=== PATIENT | female | born 1985 | race Caucasian/White ===

== ENCOUNTER 2017-07-27 17:26 | Inpatient (IN) | payer BC ==
[2017-07-27] MEDS ORDERED: Sodium Chloride 0.9% 10 ML Syringe FLUSH PRN (18:12)
--- NOTE | 2017-07-27 18:27 | PCM.LDHP ---
L&D History of Present Illness - General Date of Service: 07/27/17 Admit Problem/Dx: Patient Status Order with Admit Dx/Problem 07/27/17 18:12 Patient Status [ADT] Routine Admission Diagnosis/Problem Admission Diagnosis/Problem Source of Information: Patient History Limitations: Reports: No Limitations - History of Present Illness Introduction:: 32-year-old G one P0000 BRIGITTE 08/07/17 estimated gestational age 38 weeks 3 days presented to labor and delivery complaining of contractions. Cervix was 5 cm dilated. Spontaneous rupture membranes occurred at approximately 1820 hrs. Clear fluid. Group B strep is reported as negative. Blood type is AB+, antibody screen negative, hemoglobin 12.4 on 02/01/17. Platelets 194,000 rubella immune on 04/18/17 hemoglobin 12.3 platelets 194,001 hour OB glucose screen normal at 1: 15 antibody screen negative hepatitis B surface antigen nonreactive on 02/01/17 HIV negative as well. Chlamydia and GC probe not dissected. Patient admitted for delivery. Improves with: Reports: None Worsens with: Reports: None Associated Symptoms: Reports: N - Related Data Allergies/Adverse Reactions: Allergies Allergy/AdvReac Type Severity Reaction Status Date / Time No Known Allergies Allergy Verified 07/27/17 17:40 H&P Review of Systems - Review of Systems: Review Of Systems: See Below General: Reports: No Symptoms HEENT: Reports: No Symptoms Pulmonary: Reports: No Symptoms Cardiovascular: Reports: No Symptoms Gastrointestinal: Reports: No Symptoms Genitourinary: Reports: No Symptoms Musculoskeletal: Reports: No Symptoms Skin: Reports: No Symptoms Psychiatric: Reports: No Symptoms Neurological: Reports: No Symptoms Hematologic/Lymphatic: Reports: No Symptoms Immunologic: Reports: No Symptoms L&D Exam - Exam Exam: See Below - Vital Signs Vital Signs: Last Vital Signs Temp 98.0 F 07/27/17 17:39 Pulse 70 07/27/17 17:39 Resp 16 07/27/17 17:39 BP 127/69 07/27/17 17:39 Pulse Ox Weight: 135 lb - OB Specific Fundal Height In cm: 38 Contraction Duration (sec): 60 Contraction Frequency (min): 3 Contraction Intensity: Moderate to Strong Movement: Active Heart Tones: Present Heart Tones per Min: 135 Heart Rate (FHR) Variability: Moderate (6-25 bmp) Presentation: Vertex - Jensen Score Jensen Score Cervix Position: Posterior Jensen Score Consistency: Soft Jensen Score Effacement: >80% Jensen Score Dilation: > 5 cm Jensen Score Infant's Station: -1 ,0 Jensen Score Total: 10 - Exam General: Alert, Oriented HEENT: Conjunctiva Clear, Mucosa Moist & [place], PERRLA Neck: Supple, Trachea Midline Lungs: Clear to Auscultation, Normal Respiratory Effort Cardiovascular: Regular Rate, Regular Rhythm GI/Abdominal Exam: Normal Bowel Sounds, Soft Genitourinary: Normal external exam Extremities: Normal Inspection, Normal Range of Motion, Non-Tender, No Pedal Edema, Normal Capillary Refill Skin: Warm, Dry, Intact Neurological: Reflexes Equal Bilateral Psychiatric: Alert, Normal Affect, Normal Mood - Problem List (1) 38 weeks gestation of SNOMED Code(s): 90946146 ICD Code: Z3A.38 - 38 WEEKS GESTATION OF Status: Acute Current Visit: Yes Problem List Initiated/Reviewed/Updated: No Orders Last 24hrs: Active Orders 24 hr Category Date Time Status Patient Status [ADT] Routine ADT 07/27/17 18:12 Active Activity as Tolerated [RC] PFP Care 07/27/17 18:12 Active Communication Order [RC] ASDIRECTED Care 07/27/17 18:12 Active Heart Tones [RC] ASDIRECTED Care 07/27/17 18:13 Active Notify Provider [RC] PFP Care 07/27/17 18:12 Active Notify Provider [RC] PRN Care 07/27/17 18:12 Active Peripheral IV Care [RC] . DIRECTED Care 07/27/17 18:13 Active Vital Signs [RC] PER UNIT ROUTINE Care 07/27/17 18:12 Active CBC WITH AUTO DIFF [HEME] Stat Lab 07/27/17 18:12 Ordered RAPID PLASMA REAGIN,RPR [CHEM] Routine Lab 07/27/17 18:15 Ordered TYPE AND SCREEN [BBK] Stat Lab 07/27/17 18:12 Ordered Lactated Ringers [Ringers, Lactated] 1,000 ml Med 07/27/17 18:15 Active IV ASDIRECTED Oxytocin [Pitocin] 20 unit Med 07/27/17 18:15 Active Lactated Ringers [Ringers, Lactated] 1,000 ml IV TITRATE Sodium Chloride 0.9% [Saline Flush] Med 07/27/17 18:12 Active 10 ml FLUSH ASDIRECTED PRN Electronic Heart Tones Ext w TOCO [WOMSER] Oth 07/27/17 18:12 Ordered Routine Electronic Heart Tones Internal [WOMSER] Per Unit Oth 07/27/17 18:12 Ordered Routine Peripheral IV Insertion Adult [OM.PC] Routine Ot 07/27/17 18:12 Ordered Resuscitation Status Routine Resus Stat 07/27/17 18:12 Ordered Medication Orders Lactated Ringer's (Ringers, Lactated) 1,000 mls @ 100 mls/hr IV ASDIRECTED [place] Oxytocin 20 unit/ Lactated (Ringer's) 1,002 mls @ 500 mls/hr IV TITRATE [place]; Protocol Sodium Chloride (Saline Flush) 10 ml FLUSH ASDIRECTED PRN PRN Reason: Keep Vein Open Assessment/Plan Comment:: Plan delivery.
[2017-07-28] MEDS ORDERED: Ondansetron 4 MG/2 ML SDV IVPUSH PRN (02:14)
[2017-07-28] MEDS: Lactated Ringers 1,000 ML IV SCH ×2 (02:28→09:39)
[2017-07-28] MEDS: Oxytocin/Lactated Ringers 10 UNIT/1,000 ML BAG IV SCH ×2 (02:28→13:19)
[2017-07-28] MEDS ORDERED: ePHEDrine 50 MG/ML SDV IVPUSH PRN (08:59)
[2017-07-28] MEDS ORDERED: diphenhydrAMINE 50 MG/ML SDV IVPUSH PRN (08:59)
[2017-07-28] MEDS ORDERED: fentaNYL 100 MCG/2 ML SDV EPIDUR PRN (08:59)
[2017-07-28] MEDS ORDERED: Bupivacaine/fentaNYL/NS 100 ML Bag EPIDUR SCH (09:00)
--- NOTE | 2017-07-28 09:21 | PCM.SN ---
- Free Text/Narrative Note: Amniotomy of forebag clear fluid at 0914. Cat I FHR.
[2017-07-28] MEDS: Nalbuphine 20 MG/ML 1 ML Syringe IVPUSH PRN ×2 (09:25→11:36)
[2017-07-28] MEDS ORDERED: Lidocaine 1% 50 ML MDV ONE (12:38)
--- NOTE | 2017-07-28 12:57 | PCM.DEL ---
L & D Note - General Info Date of Service: 07/28/17 Mother's Due Date: 08/07/17 - Delivery Note Labor: Spontaneous, Augmented by ARM, Augmented by Oxytocin Delivery Outcome: Livebirth (Female [id number]/28/2017 2890 gms/ 6#5.9 oz, KRISTY APGARS 7/9. No episiotomy. 2nd degree laceration sutured with 3-0 monocryl x1.) Infant Delivery Method: Spontaneous Vaginal Delivery-Single Infant Delivery Mode: Spontaneous Type of Forceps Used: NA Presentation: Left Occiput Anterior (KRISTY) Nuchal Cord: None Prep: Povidone-Iodine (Betadine Anesthesia Type: Local Anesthetic: Lidocaine (Xylocaine) 1% Plain Local Anesthetic Volume: 5cc Amniotic Fluid Description: Clear Episiotomy Type: None Laceration: 2nd Degree (ML) Suture type: Other (Monocryl x1) Suture size: 3-0 Placenta: Intact, Spontaneous (123807/28/2017 Ignacio intact examined and discarded) Cord: 3 Vessels Estimated Blood Loss: 250 Provider: Carmelo Haji Score 1 min: 7 Score 5 min: 9 - General Info Date of Service: 07/28/17 Functional Status: Reports: Pain Controlled - Review of Systems General: Reports: No Symptoms HEENT: Reports: No Symptoms Pulmonary: Reports: No Symptoms Cardiovascular: Reports: No Symptoms Gastrointestinal: Reports: No Symptoms Genitourinary: Reports: No Symptoms Musculoskeletal: Reports: No Symptoms Skin: Reports: No Symptoms Neurological: Reports: No Symptoms Psychiatric: Reports: No Symptoms - Patient Data Vitals - Most Recent: Last Vital Signs Temp 98.0 F 07/27/17 17:39 Pulse 70 07/27/17 17:39 Resp 16 07/27/17 17:39 BP 127/69 07/27/17 17:39 Pulse Ox Weight - Most Recent: 135 lb I&O - Last 24 Hours: Intake & Output 07/27/17 07/28/17 07/28/17 22:59 06:59 14:59 Intake Total 1000 Balance 1000 Lab Results Last 24 Hours: Laboratory Results - last 24 hr 07/27/17 07/27/17 Range/Units 18:20 18:20 WBC 11.10 H (3.98-10.04) K/mm3 RBC 4.05 (3.98-5.22) M/mm3 Hgb 12.3 (11.2-15.7) gm/L Hct 36.2 (34.1-44.9) % MCV 89.4 (79.4-94.8) fl MCH 30.4 (25.6-32.2) pg MCHC 34.0 (32.2-35.5) g/dl RDW Std Deviation 41.1 (36.4-46.3) fL Plt Count 186 (182-369) K/mm3 MPV 10.9 (9.4-12.3) fl Neut % (Auto) 69.3 (34.0-71.1) % Lymph % (Auto) 21.1 (19.3-51.7) % [place] % (Auto) 7.7 (4.7-12.5) % Eos % (Auto) 1.5 (0.7-5.8) Baso % (Auto) 0.2 (0.1-1.2) % Neut # (Auto) 7.69 H (1.56-6.13) K/mm3 Lymph # (Auto) 2.34 (1.18-3.74) K/mm3 [place] # (Auto) 0.86 H (0.24-0.36) K/mm3 Eos # (Auto) 0.17 (0.04-0.36) K/mm3 Baso # (Auto) 0.02 (0.01-0.08) K/mm3 Blood Type AB POSITIVE Gel Antibody Screen Negative Med Orders - Current: Current Medications Diphenhydramine HCl (Benadryl) 25 mg IVPUSH Q6H PRN PRN Reason: Itching Ephedrine Sulfate (Ephedrine Sulfate) 5 mg IVPUSH ASDIRECTED PRN PRN Reason: HYPOTENTSION Fentanyl (Sublimaze) 100 mcg EPIDUR Q3H PRN PRN Reason: Pain Fentanyl/Bupivacaine HCl (Fentanyl/Bupivacaine/Ns 2 Mcg-0.125% 100 Ml) 100 ml EPIDUR ASDIRECTED [place] Lactated Ringer's (Ringers, Lactated) 1,000 mls @ 100 mls/hr IV ASDIRECTED [place] Last Admin: 07/28/17 09:39 Dose: 100 mls/hr Oxytocin 20 unit/ Lactated (Ringer's) 1,002 mls @ 500 mls/hr IV TITRATE [place]; Protocol Oxytocin/Lactated Ringer's (Pitocin In Lr 10 Units/1,000 Ml) 10 unit in 1,000 mls @ 12 mls/hr IV TITRATE [place]; Protocol Last Infusion: 07/28/17 06:27 Dose: 10 munits/min, 60 mls/hr Nalbuphine HCl (Nubain) 10 mg IVPUSH Q2H PRN PRN Reason: Pain Last Admin: 07/28/17 11:36 Dose: 10 mg Ondansetron HCl (Zofran) 4 mg IVPUSH Q4H PRN PRN Reason: Nausea Sodium Chloride (Saline Flush) 10 ml FLUSH ASDIRECTED PRN PRN Reason: Keep Vein Open Discontinued Medications Oxytocin 10 unit/ Lactated (Ringer's) 1,001 mls @ 12.01 mls/hr IV TITRATE [place]; Protocol Lidocaine HCl (Xylocaine 1%) Confirm Administered Dose 50 ml .ROUTE .[facility] ONE Stop: 07/28/17 12:39 - Exam General: Alert, Oriented HEENT: Pupils Equal, Pupils Reactive, Mucous Membr. Moist/[place] Neck: Supple (Female) Exam: Other (see delivery record (L&D)) Extremities: Normal Inspection, Normal Range of Motion, Non-Tender, No Pedal Edema, Normal Capillary Refill Skin: Warm, Dry, Intact Wound/Incisions: Healing Well Neurological: No New Focal Deficit Psy/Mental Status: Alert, Normal Affect, Normal Mood - Problem List & Annotations (1) 38 weeks gestation of SNOMED Code(s): 55003025 Code(s): Z3A.38 - 38 WEEKS GESTATION OF Status: Acute Current Visit: Yes (2) Second degree laceration of perineum, delivered, current hospitalization SNOMED Code(s): 381608267 Code(s): O70.1 - SECOND DEGREE PERINEAL LACERATION DURING DELIVERY Status: Acute Current Visit: Yes - Problem List Review Problem List Initiated/Reviewed/Updated: No - My Orders Last 24 Hours: My Active Orders 07/27/17 18:12 Patient Status [ADT] Routine Activity as Tolerated [RC] PFP Communication Order [RC] ASDIRECTED Notify Provider [RC] PFP Notify Provider [RC] PRN Vital Signs [RC] PER UNIT ROUTINE Sodium Chloride 0.9% [Saline Flush] 10 ml FLUSH ASDIRECTED PRN Electronic Heart Tones Ext w TOCO [WOMSER] Routine Electronic Heart Tones Internal [WOMSER] Per Unit Routine Peripheral IV Insertion Adult [OM.PC] Routine Resuscitation Status Routine 07/27/17 18:13 Peripheral IV Care [RC] . DIRECTED 07/27/17 18:15 Lactated Ringers [Ringers, Lactated] 1,000 ml IV ASDIRECTED Oxytocin [Pitocin] 20 unit Lactated Ringers [Ringers, Lactated] 1,000 ml IV TITRATE 07/27/17 18:20 RAPID PLASMA REAGIN,RPR [CHEM] Routine 07/27/17 18:46 Non Stress Test [ Non Stress Test] [RC] PER UNIT ROUTINE 07/28/17 02:13 Nalbuphine [Nubain] 10 mg IVPUSH Q2H PRN 07/28/17 02:14 Ondansetron [Zofran] 4 mg IVPUSH Q4H PRN 07/28/17 02:30 Oxytocin/Lactated Ringers [Pitocin in LR 10 Units/1,000 ML] 10 unit in 1,000 ml IV TITRATE - Plan Plan:: Plan delivery.
[2017-07-28] MEDS ORDERED: Lidocaine 1% 50 ML MDV INJECT ONE (13:23)
[2017-07-28] MEDS ORDERED: Acetaminophen 325 MG Tab PO PRN (13:23)
[2017-07-28] MEDS ORDERED: Lanolin 100% Cream 7 GM Tube TOP PRN (13:23)
[2017-07-28] MEDS ORDERED: Docusate Sodium 100 MG Cap PO PRN (13:23)
[2017-07-28] MEDS ORDERED: Ibuprofen 600 MG Tab PO PRN (13:23)
[2017-07-28] MEDS ORDERED: Witch Hazel Medicated Pads 100/Jar TOP PRN (13:23)
[2017-07-28] MEDS ORDERED: Benzocaine/Menthol 20%-0.5% Spray 56 GM Canister TOP PRN (15:23)
--- NOTE | 2017-07-29 08:13 | PCM.SN ---
- Free Text/Narrative Note: PPD#1 Afebrile, chest clear no abnormal breath sounds, cardiac exam normal. Abdomen soft, uterus at U-1, no heavy vaginal bleeding, no leg cramps.
--- NOTE | 2017-07-30 07:23 | PCM.DCSUM1 ---
Discharge Summary - Hospital Course Free Text/Narrative:: [facility] LIVE L/D Delivery Note Patient Name: LOW PLASCENCIA Date of : 85 Patient Status: Inpatient Attending Provider: Carmelo Haji Date: 07/28/17 12:52 Initialization Date: 07/28/17 12:52 L & D Note - General Info Date of Service: 07/28/17 Mother's Due Date: 08/07/17 - Delivery Note Labor: Spontaneous, Augmented by ARM, Augmented by Oxytocin Delivery Outcome: Livebirth (Female 123507/28/2017 2890 gms/ 6#5.9 oz, KRISTY APGARS 7/9. No episiotomy. 2nd degree laceration sutured with 3-0 monocryl x1.) Infant Delivery Method: Spontaneous Vaginal Delivery-Single Delivery Mode: Spontaneous Type of Forceps Used: NA Presentation: Left Occiput Anterior (KRISTY) Nuchal Cord: None Prep: Povidone-Iodine (Betadine Anesthesia Type: Local Anesthetic: Lidocaine (Xylocaine) 1% Plain Local Anesthetic Volume: 5cc Amniotic Fluid Description: Clear Episiotomy Type: None Laceration: 2nd Degree (ML) Suture type: Other (Monocryl x1) Suture size: 3-0 Placenta: Intact, Spontaneous (123807/28/2017 Pierre intact examined and discarded) Cord: 3 Vessels Estimated Blood Loss: 250 Provider: Carmelo Haji Score 1 min: 7 Score 5 min: 9 - General Info Date of Service: 07/28/17 Functional Status: Reports: Pain Controlled - Review of Systems General: Reports: No Symptoms HEENT: Reports: No Symptoms Pulmonary: Reports: No Symptoms Cardiovascular: Reports: No Symptoms Gastrointestinal: Reports: No Symptoms Genitourinary: Reports: No Symptoms Musculoskeletal: Reports: No Symptoms Skin: Reports: No Symptoms Neurological: Reports: No Symptoms Psychiatric: Reports: No Symptoms - Patient Data Vitals - Most Recent: Last Vital Signs Temp 98.0 F 07/27/17 17:39 Pulse 70 07/27/17 17:39 Resp 16 07/27/17 17:39 BP 127/69 07/27/17 17:39 Pulse Ox Weight - Most Recent: 135 lb I&O - Last 24 Hours: Intake & Output 07/27/17 07/28/17 07/28/17 22:59 06:59 14:59 Intake Total 1000 Balance 1000 Lab Results Last 24 Hours: Laboratory Results - last 24 hr 07/27/17 07/27/17 Range/Units 18:20 18:20 WBC 11.10 H (3.98-10.04) K/mm3 RBC 4.05 (3.98-5.22) M/mm3 Hgb 12.3 (11.2-15.7) gm/L Hct 36.2 (34.1-44.9) % MCV 89.4 (79.4-94.8) fl MCH 30.4 (25.6-32.2) pg MCHC 34.0 (32.2-35.5) g/dl RDW Std Deviation 41.1 (36.4-46.3) fL Plt Count 186 (182-369) K/mm3 MPV 10.9 (9.4-12.3) fl Neut % (Auto) 69.3 (34.0-71.1) % Lymph % (Auto) 21.1 (19.3-51.7) % Sharp % (Auto) 7.7 (4.7-12.5) % Eos % (Auto) 1.5 (0.7-5.8) Baso % (Auto) 0.2 (0.1-1.2) % Neut # (Auto) 7.69 H (1.56-6.13) K/mm3 Lymph # (Auto) 2.34 (1.18-3.74) K/mm3 Sharp # (Auto) 0.86 H (0.24-0.36) K/mm3 Eos # (Auto) 0.17 (0.04-0.36) K/mm3 Baso # (Auto) 0.02 (0.01-0.08) K/mm3 Blood Type AB POSITIVE Gel Antibody Screen Negative Med Orders - Current: Current Medications Diphenhydramine HCl (Benadryl) 25 mg IVPUSH Q6H PRN PRN Reason: Itching Ephedrine Sulfate (Ephedrine Sulfate) 5 mg IVPUSH ASDIRECTED PRN PRN Reason: HYPOTENTSION Fentanyl (Sublimaze) 100 mcg EPIDUR Q3H PRN PRN Reason: Pain Fentanyl/Bupivacaine HCl (Fentanyl/Bupivacaine/Ns 2 Mcg-0.125% 100 Ml) 100 ml EPIDUR ASDIRECTED [place] Lactated Ringer's (Ringers, Lactated) 1,000 mls @ 100 mls/hr IV ASDIRECTED [place] Last Admin: 07/28/17 09:39 Dose: 100 mls/hr Oxytocin 20 unit/ Lactated (Ringer's) 1,002 mls @ 500 mls/hr IV TITRATE [place]; Protocol Oxytocin/Lactated Ringer's (Pitocin In Lr 10 Units/1,000 Ml) 10 unit in 1,000 mls @ 12 mls/hr IV TITRATE [place]; Protocol Last Infusion: 07/28/17 06:27 Dose: 10 munits/min, 60 mls/hr Nalbuphine HCl (Nubain) 10 mg IVPUSH Q2H PRN PRN Reason: Pain Last Admin: 07/28/17 11:36 Dose: 10 mg Ondansetron HCl (Zofran) 4 mg IVPUSH Q4H PRN PRN Reason: Nausea Sodium Chloride (Saline Flush) 10 ml FLUSH ASDIRECTED PRN PRN Reason: Keep Vein Open Discontinued Medications Oxytocin 10 unit/ Lactated (Ringer's) 1,001 mls @ 12.01 mls/hr IV TITRATE [place]; Protocol Lidocaine HCl (Xylocaine 1%) Confirm Administered Dose 50 ml .ROUTE .[employer]MED ONE Stop: 07/28/17 12:39 - Exam General: Alert, Oriented HEENT: Pupils Equal, Pupils Reactive, Mucous Membr. Moist/Yonah Neck: Supple (Female) Exam: Other (see delivery record (L&D)) Extremities: Normal Inspection, Normal Range of Motion, Non-Tender, No Pedal Edema, Normal Capillary Refill Skin: Warm, Dry, Intact Wound/Incisions: Healing Well Neurological: No New Focal Deficit Psy/Mental Status: Alert, Normal Affect, Normal Mood - Problem List & Annotations (1) 38 weeks gestation of SNOMED Code(s): 52222268 Code(s): Z3A.38 - 38 WEEKS GESTATION OF Status: Acute Current Visit: Yes (2) Second degree laceration of perineum, delivered, current hospitalization SNOMED Code(s): 769223768 Code(s): O70.1 - SECOND DEGREE PERINEAL LACERATION DURING DELIVERY Status: Acute Current Visit: Yes - Problem List Review Problem List Initiated/Reviewed/Updated: No - My Orders Last 24 Hours: My Active Orders 07/27/17 18:12 Patient Status [ADT] Routine Activity as Tolerated [RC] PFP Communication Order [RC] ASDIRECTED Notify Provider [RC] PFP Notify Provider [RC] PRN Vital Signs [RC] PER UNIT ROUTINE Sodium Chloride 0.9% [Saline Flush] 10 ml FLUSH ASDIRECTED PRN Electronic Heart Tones Ext w TOCO [WOMSER] Routine Electronic Heart Tones Internal [WOMSER] Per Unit Routine Peripheral IV Insertion Adult [OM.PC] Routine Resuscitation Status Routine 07/27/17 18:13 Peripheral IV Care [RC] . DIRECTED 07/27/17 18:15 Lactated Ringers [Ringers, Lactated] 1,000 ml IV ASDIRECTED Oxytocin [Pitocin] 20 unit Lactated Ringers [Ringers, Lactated] 1,000 ml IV TITRATE 07/27/17 18:20 RAPID PLASMA REAGIN,RPR [CHEM] Routine 07/27/17 18:46 Non Stress Test [ Non Stress Test] [RC] PER UNIT ROUTINE 07/28/17 02:13 Nalbuphine [Nubain] 10 mg IVPUSH Q2H PRN 07/28/17 02:14 Ondansetron [Zofran] 4 mg IVPUSH Q4H PRN 07/28/17 02:30 Oxytocin/Lactated Ringers [Pitocin in LR 10 Units/1,000 ML] 10 unit in 1,000 ml IV TITRATE - Plan Plan:: Plan delivery. HPI Initial Comments: [facility] LIVE L/D Delivery Note Patient Name: LOW PLASCENCIA Date of : 85 Patient Status: Inpatient Attending Provider: Carmelo Haji Date: 07/28/17 12:52 Initialization Date: 07/28/17 12:52 L & D Note - General Info Date of Service: 07/28/17 Mother's Due Date: 08/07/17 - Delivery Note Labor: Spontaneous, Augmented by ARM, Augmented by Oxytocin Delivery Outcome: Livebirth (Female 123507/28/2017 2890 gms/ 6#5.9 oz, KRISTY APGARS 7/9. No episiotomy. 2nd degree laceration sutured with 3-0 monocryl x1.) Infant Delivery Method: Spontaneous Vaginal Delivery-Single Delivery Mode: Spontaneous Type of Forceps Used: NA Presentation: Left Occiput Anterior (KRISTY) Nuchal Cord: None Prep: Povidone-Iodine (Betadine Anesthesia Type: Local Anesthetic: Lidocaine (Xylocaine) 1% Plain Local Anesthetic Volume: 5cc Amniotic Fluid Description: Clear Episiotomy Type: None Laceration: 2nd Degree (ML) Suture type: Other (Monocryl x1) Suture size: 3-0 Placenta: Intact, Spontaneous (123807/28/2017 Pierre intact examined and discarded) Cord: 3 Vessels Estimated Blood Loss: 250 Provider: Carmelo Haji Score 1 min: 7 Score 5 min: 9 - General Info Date of Service: 07/28/17 Functional Status: Reports: Pain Controlled - Review of Systems General: Reports: No Symptoms HEENT: Reports: No Symptoms Pulmonary: Reports: No Symptoms Cardiovascular: Reports: No Symptoms Gastrointestinal: Reports: No Symptoms Genitourinary: Reports: No Symptoms Musculoskeletal: Reports: No Symptoms Skin: Reports: No Symptoms Neurological: Reports: No Symptoms Psychiatric: Reports: No Symptoms - Patient Data Vitals - Most Recent: Last Vital Signs Temp 98.0 F 07/27/17 17:39 Pulse 70 07/27/17 17:39 Resp 16 07/27/17 17:39 BP 127/69 07/27/17 17:39 Pulse Ox Weight - Most Recent: 135 lb I&O - Last 24 Hours: Intake & Output 07/27/17 07/28/17 07/28/17 22:59 06:59 14:59 Intake Total 1000 Balance 1000 Lab Results Last 24 Hours: Laboratory Results - last 24 hr 07/27/17 07/27/17 Range/Units 18:20 18:20 WBC 11.10 H (3.98-10.04) K/mm3 RBC 4.05 (3.98-5.22) M/mm3 Hgb 12.3 (11.2-15.7) gm/L Hct 36.2 (34.1-44.9) % MCV 89.4 (79.4-94.8) fl MCH 30.4 (25.6-32.2) pg MCHC 34.0 (32.2-35.5) g/dl RDW Std Deviation 41.1 (36.4-46.3) fL Plt Count 186 (182-369) K/mm3 MPV 10.9 (9.4-12.3) fl Neut % (Auto) 69.3 (34.0-71.1) % Lymph % (Auto) 21.1 (19.3-51.7) % Sharp % (Auto) 7.7 (4.7-12.5) % Eos % (Auto) 1.5 (0.7-5.8) Baso % (Auto) 0.2 (0.1-1.2) % Neut # (Auto) 7.69 H (1.56-6.13) K/mm3 Lymph # (Auto) 2.34 (1.18-3.74) K/mm3 Sharp # (Auto) 0.86 H (0.24-0.36) K/mm3 Eos # (Auto) 0.17 (0.04-0.36) K/mm3 Baso # (Auto) 0.02 (0.01-0.08) K/mm3 Blood Type AB POSITIVE Gel Antibody Screen Negative Med Orders - Current: Current Medications Diphenhydramine HCl (Benadryl) 25 mg IVPUSH Q6H PRN PRN Reason: Itching Ephedrine Sulfate (Ephedrine Sulfate) 5 mg IVPUSH ASDIRECTED PRN PRN Reason: HYPOTENTSION Fentanyl (Sublimaze) 100 mcg EPIDUR Q3H PRN PRN Reason: Pain Fentanyl/Bupivacaine HCl (Fentanyl/Bupivacaine/Ns 2 Mcg-0.125% 100 Ml) 100 ml EPIDUR ASDIRECTED [place] Lactated Ringer's (Ringers, Lactated) 1,000 mls @ 100 mls/hr IV ASDIRECTED [place] Last Admin: 07/28/17 09:39 Dose: 100 mls/hr Oxytocin 20 unit/ Lactated (Ringer's) 1,002 mls @ 500 mls/hr IV TITRATE [place]; Protocol Oxytocin/Lactated Ringer's (Pitocin In Lr 10 Units/1,000 Ml) 10 unit in 1,000 mls @ 12 mls/hr IV TITRATE [place]; Protocol Last Infusion: 07/28/17 06:27 Dose: 10 munits/min, 60 mls/hr Nalbuphine HCl (Nubain) 10 mg IVPUSH Q2H PRN PRN Reason: Pain Last Admin: 07/28/17 11:36 Dose: 10 mg Ondansetron HCl (Zofran) 4 mg IVPUSH Q4H PRN PRN Reason: Nausea Sodium Chloride (Saline Flush) 10 ml FLUSH ASDIRECTED PRN PRN Reason: Keep Vein Open Discontinued Medications Oxytocin 10 unit/ Lactated (Ringer's) 1,001 mls @ 12.01 mls/hr IV TITRATE [place]; Protocol Lidocaine HCl (Xylocaine 1%) Confirm Administered Dose 50 ml .ROUTE .[employer] ONE Stop: 07/28/17 12:39 - Exam General: Alert, Oriented HEENT: Pupils Equal, Pupils Reactive, Mucous Membr. Moist/Yonah Neck: Supple (Female) Exam: Other (see delivery record (L&D)) Extremities: Normal Inspection, Normal Range of Motion, Non-Tender, No Pedal Edema, Normal Capillary Refill Skin: Warm, Dry, Intact Wound/Incisions: Healing Well Neurological: No New Focal Deficit Psy/Mental Status: Alert, Normal Affect, Normal Mood - Problem List & Annotations (1) 38 weeks gestation of SNOMED Code(s): 94042437 Code(s): Z3A.38 - 38 WEEKS GESTATION OF Status: Acute Current Visit: Yes (2) Second degree laceration of perineum, delivered, current hospitalization SNOMED Code(s): 067826906 Code(s): O70.1 - SECOND DEGREE PERINEAL LACERATION DURING DELIVERY Status: Acute Current Visit: Yes - Problem List Review Problem List Initiated/Reviewed/Updated: No - My Orders Last 24 Hours: My Active Orders 07/27/17 18:12 Patient Status [ADT] Routine Activity as Tolerated [RC] PFP Communication Order [RC] ASDIRECTED Notify Provider [RC] PFP Notify Provider [RC] PRN Vital Signs [RC] PER UNIT ROUTINE Sodium Chloride 0.9% [Saline Flush] 10 ml FLUSH ASDIRECTED PRN Electronic Heart Tones Ext w TOCO [WOMSER] Routine Electronic Heart Tones Internal [WOMSER] Per Unit Routine Peripheral IV Insertion Adult [OM.PC] Routine Resuscitation Status Routine 07/27/17 18:13 Peripheral IV Care [RC] . DIRECTED 07/27/17 18:15 Lactated Ringers [Ringers, Lactated] 1,000 ml IV ASDIRECTED Oxytocin [Pitocin] 20 unit Lactated Ringers [Ringers, Lactated] 1,000 ml IV TITRATE 07/27/17 18:20 RAPID PLASMA REAGIN,RPR [CHEM] Routine 07/27/17 18:46 Non Stress Test [ Non Stress Test] [RC] PER UNIT ROUTINE 07/28/17 02:13 Nalbuphine [Nubain] 10 mg IVPUSH Q2H PRN 07/28/17 02:14 Ondansetron [Zofran] 4 mg IVPUSH Q4H PRN 07/28/17 02:30 Oxytocin/Lactated Ringers [Pitocin in LR 10 Units/1,000 ML] 10 unit in 1,000 ml IV TITRATE - Plan Plan:: Plan delivery. Brief History: [facility] LIVE . L/D Delivery Note. Patient Name: LOW PLASCENCIA [facility] Record Number: [id number]. Date of : Patient Status: Inpatient. Attending Provider: Carmelo Haji Number: [id number]. Date: 07/28/17 12:52Initialization Date: 07/28/17 12:52. L & D Note. - General Info. Date of Service: 07/28/17. Mother's Due Date: 08/07/17. - Delivery Note. Labor: Spontaneous, Augmented by ARM, Augmented by Oxytocin. Delivery Outcome: Livebirth (Female 1236 Saturday07/28[birth year]2017 2890 gms/ 6 #5.9 oz, KRISTY APGARS 7/9. No episiotomy. 2nd degree laceration sutured with 3-0 monocryl x1.). Infant Delivery Method: Spontaneous Vaginal Delivery-Single. Infant Delivery Mode: Spontaneous. Type of Forceps Used: NA. Presentation: Left Occiput Anterior (KRISTY). Nuchal Cord: None. Prep: Povidone- Iodine (Betadine. Anesthesia Type: Local. Anesthetic: Lidocaine (Xylocaine) 1 % Plain. Local Anesthetic Volume: 5cc. Amniotic Fluid Description: Clear. Episiotomy Type: None. Laceration: 2nd Degree (ML). Suture type: Other ( Monocryl x1). Suture size: 3-0. Placenta: Intact, Spontaneous (1239 Saturday Pierre intact examined and discarded). Cord: 3 Vessels. Estimated Blood Loss: 250. Provider: Carmelo Haji. Score 1 min: 7. Score 5 min: 9. - General Info. Date of Service: 07/28/17. Functional Status: Reports: Pain Controlled. - Review of Systems. General: Reports: No Symptoms. HEENT: Reports: No Symptoms. Pulmonary: Reports: No Symptoms. Cardiovascular: Reports: No Symptoms. Gastrointestinal: Reports: No Symptoms. Genitourinary: Reports: No Symptoms. Musculoskeletal: Reports: No Symptoms. Skin: Reports: No Symptoms. Neurological: Reports: No Symptoms. Psychiatric: Reports: No Symptoms. - Patient Data. Vitals - Most Recent: Last Vital Signs. Temp 98.0 F 07/27/17 17:39. Pulse 70 07/27/17 17:39. Resp 16 07/27/17 17:39. BP 127/69 07/27/17 17:39. Pulse Ox. Weight - Most Recent: 135 lb. I&O - Last 24 Hours: Intake & Output. 07/27/1805. 22:5906:[id number]:59. Intake [id number]. [id number]. Lab Results Last 24 Hours: Laboratory Results - last 24 hr. 07/27/1805Range/Units. 18:2018: 20. WBC 11.10 H (3.98-10.04) K/mm3. RBC 4.05 (3.98-5.22) M/mm3. Hgb 12.3 ( 11.2-15.7) gm/L. Hct 36.2 (34.1-44.9) %. MCV 89.4 (79.4-94.8) fl. MCH 30.4 (25.6-32.2) pg. MCHC 34.0 (32.2-35.5) g/dl. RDW Std Deviation 41.1 ( 36.4-46.3) fL. Plt Count 186 (182-369) K/mm3. MPV 10.9 (9.4-12.3) fl. Neut % (Auto) 69.3 (34.0-71.1) %. Lymph % (Auto) 21.1 (19.3-51.7) %. Sharp % (Auto) 7.7 (4.7-12.5) %. Eos % (Auto) 1.5 (0.7-5.8). Baso % (Auto) 0.2 (0.1- 1.2) %. Neut # (Auto) 7.69 H (1.56-6.13) K/mm3. Lymph # (Auto) 2.34 (1.18- 3.74) K/mm3. Sharp # (Auto) 0.86 H (0.24-0.36) K/mm3. Eos # (Auto) 0.17 (0.04 -0.36) K/mm3. Baso # (Auto) 0.02 (0.01-0.08) K/mm3. Blood Type AB POSITIVE. Gel Antibody Screen Negative. Med Orders - Current: Current Medications. Diphenhydramine HCl (Benadryl) 25 mg IVPUSH Q6H PRN. PRN Reason: Itching. Ephedrine Sulfate (Ephedrine Sulfate) 5 mg IVPUSH ASDIRECTED PRN. PRN Reason: HYPOTENTSION. Fentanyl (Sublimaze) 100 mcg EPIDUR Q3H PRN. PRN Reason: Pain. Fentanyl/Bupivacaine HCl (Fentanyl/Bupivacaine/Ns 2 Mcg-0.125% 100 Ml) 100 ml EPIDUR ASDIRECTED [place]. Lactated Ringer's (Ringers, Lactated) 1,000 mls @ 100 mls/hr IV ASDIRECTED [place]. Last Admin: 07/28/17 09:39 Dose: 100 mls/hr. Oxytocin 20 unit/ Lactated (Ringer's) 1,002 mls @ 500 mls/hr IV TITRATE [place]; Protocol. Oxytocin/Lactated Ringer's (Pitocin In Lr 10 Units/1,000 Ml) 10 unit in 1,000 mls @ 12 mls/hr IV TITRATE [place]; Protocol. Last Infusion: 06:27 Dose: 10 munits/min, 60 mls/hr. Nalbuphine HCl (Nubain) 10 mg IVPUSH Q2H PRN. PRN Reason: Pain. Last Admin: 07/28/17 11:36 Dose: 10 mg. Ondansetron HCl (Zofran) 4 mg IVPUSH Q4H PRN. PRN Reason: Nausea. Sodium Chloride (Saline Flush) 10 ml FLUSH ASDIRECTED PRN. PRN Reason: Keep Vein Open. Discontinued Medications. Oxytocin 10 unit/ Lactated (Ringer's) 1,001 mls @ 12.01 mls/hr IV TITRATE [place]; Protocol. Lidocaine HCl (Xylocaine 1%) Confirm Administered Dose 50 ml .ROUTE .[employer]. Stop: 07/28/17 12:39. - Exam. General: Alert, Oriented. HEENT: Pupils Equal, Pupils Reactive, Mucous Membr. Moist/Yonah. Neck: Supple. (Female) Exam: Other (see delivery record (L&D)). Extremities: Normal Inspection, Normal Range of Motion, Non-Tender, No Pedal Edema, Normal Capillary Refill. Skin: Warm, Dry, Intact. Wound/Incisions : Healing Well. Neurological: No New Focal Deficit. Psy/Mental Status: Alert, Normal Affect, Normal Mood. - Problem List & Annotations. (1) 38 weeks gestation of . SNOMED Code(s): 03450141. Code(s): Z3A.38 - 38 WEEKS GESTATION OF Status: Acute Current Visit: Yes. (2) Second degree laceration of perineum, delivered, current hospitalization. SNOMED Code(s): 864172692. Code(s): O70.1 - SECOND DEGREE PERINEAL LACERATION DURING DELIVERY Status: Acute Current Visit: Yes. - Problem List Review. Problem List Initiated/Reviewed/Updated: No. - My Orders. Last 24 Hours: My Active Orders. 07/27/17 18:12. Patient Status [ADT] Routine. Activity as Tolerated [ RC] PFP. Communication Order [RC] ASDIRECTED. Notify Provider [RC] PFP. Notify Provider [RC] PRN. Vital Signs [RC] PER UNIT ROUTINE. Sodium Chloride 0.9% [Saline Flush] 10 ml FLUSH ASDIRECTED PRN. Electronic Heart Tones Ext w TOCO [WOMSER] Routine. Electronic Heart Tones Internal [WOMSER] Per Unit Routine. Peripheral IV Insertion Adult [OM.PC] Routine. Resuscitation Status Routine. 07/27/17 18:13. Peripheral IV Care [RC] . DIRECTED. 07/27/17 18:15. Lactated Ringers [Ringers, Lactated] 1,000 ml IV ASDIRECTED. Oxytocin [Pitocin] 20 unit Lactated Ringers [Ringers, Lactated] 1 ,000 ml IV TITRATE. 07/27/17 18:20. RAPID PLASMA REAGIN,RPR [CHEM] Routine. 07/27/17 18:46. Non Stress Test [ Non Stress Test] [RC] PER UNIT ROUTINE. 07/28/17 02:13. Nalbuphine [Nubain] 10 mg IVPUSH Q2H PRN. 07/28/17 02:14. Ondansetron [Zofran] 4 mg IVPUSH Q4H PRN. 07/28/17 02:30. Oxytocin/ Lactated Ringers [Pitocin in LR 10 Units/1,000 ML] 10 unit in 1,000 ml IV TITRATE. - Plan. Plan:: Plan delivery. Diagnosis: Stroke: No - Discharge Data Discharge Date: 07/30/17 Discharge Disposition: Home, Self-Care 01 Condition: Good - Discharge Diagnosis/Problem(s) (1) 38 weeks gestation of SNOMED Code(s): 30049828 ICD Code: Z3A.38 - 38 WEEKS GESTATION OF Status: Acute Current Visit: Yes (2) Second degree laceration of perineum, delivered, current hospitalization SNOMED Code(s): 841952109 ICD Code: O70.1 - SECOND DEGREE PERINEAL LACERATION DURING DELIVERY Status : Acute Current Visit: Yes - Patient Summary/Data Complications: None Consults: None Hospital Course: Uneventful - Patient Instructions Diet: Regular Diet as Tolerated Activity: No Strenuous Activities Driving: Do Not Drive (48 hours) Showering/Bathing: May Shower Notify Provider of: Fever, Increased Pain, Swelling and Redness, Drainage, Nausea and/or Vomiting - Discharge Plan Referrals: Treasure Wilson MD [Physician] - (Pt will call for appointment) - Discharge Summary/Plan Comment DC Time >30 min.: No - Patient Data Vitals - Most Recent: Last Vital Signs Temp 97.5 F 07/30/17 03:09 Pulse 66 07/30/17 03:09 Resp 16 07/30/17 03:09 BP 108/73 07/30/17 03:09 Pulse Ox 99 07/30/17 03:09 Weight - Most Recent: 135 lb Lab Results - Last 24 hrs: Laboratory Results - last 24 hr 07/27/17 07/29/17 Range/Units 18:20 05:35 Manual Slide Review Abnormal smear RPR Non-reactive (NONREACTIVE) Med Orders - Current: Current Medications Acetaminophen (Tylenol) 650 mg PO Q4H PRN PRN Reason: mild pain or fever Benzocaine/Menthol (Dermoplast Pain Relief [place]) 1 gm TOP ASDIRECTED PRN PRN Reason: Perineal Comfort Measure Last Admin: 07/28/17 15:54 Dose: 1 canister Docusate Sodium (Colace) 100 mg PO BID PRN PRN Reason: Constipation Emollient Ointment (Lansinoh Hpa) 0 gm TOP ASDIRECTED PRN PRN Reason: Sore Nipples Ibuprofen (Motrin) 600 mg PO Q4H PRN PRN Reason: Mild pain or fever Witch Anjelica (Tucks) 1 pad TOP ASDIRECTED PRN PRN Reason: Hemorrhoid pain Last Admin: 07/28/17 15:54 Dose: 1 jar Discontinued Medications Diphenhydramine HCl (Benadryl) 25 mg IVPUSH Q6H PRN PRN Reason: Itching Ephedrine Sulfate (Ephedrine Sulfate) 5 mg IVPUSH ASDIRECTED PRN PRN Reason: HYPOTENTSION Fentanyl (Sublimaze) 100 mcg EPIDUR Q3H PRN PRN Reason: Pain Fentanyl/Bupivacaine HCl (Fentanyl/Bupivacaine/Ns 2 Mcg-0.125% 100 Ml) 100 ml EPIDUR ASDIRECTED [place] Lactated Ringer's (Ringers, Lactated) 1,000 mls @ 100 mls/hr IV ASDIRECTED [place] Last Admin: 07/28/17 09:39 Dose: 100 mls/hr Oxytocin 20 unit/ Lactated (Ringer's) 1,002 mls @ 500 mls/hr IV TITRATE [place]; Protocol Oxytocin 10 unit/ Lactated (Ringer's) 1,001 mls @ 12.01 mls/hr IV TITRATE [place]; Protocol Oxytocin/Lactated Ringer's (Pitocin In Lr 10 Units/1,000 Ml) 10 unit in 1,000 mls @ 12 mls/hr IV TITRATE [place]; Protocol Last Admin: 07/28/17 13:19 Dose: 10 munits/min, 60 mls/hr Lidocaine HCl (Xylocaine 1%) Confirm Administered Dose 50 ml .ROUTE .[employer] ONE Stop: 07/28/17 12:39 Last Admin: 07/28/17 13:21 Dose: Not Given Lidocaine HCl (Xylocaine 1%) 50 ml INJECT ONETIME ONE Stop: 07/28/17 13:24 Last Admin: 07/28/17 15:54 Dose: 50 ml Nalbuphine HCl (Nubain) 10 mg IVPUSH Q2H PRN PRN Reason: Pain Last Admin: 07/28/17 11:36 Dose: 10 mg Ondansetron HCl (Zofran) 4 mg IVPUSH Q4H PRN PRN Reason: Nausea Sodium Chloride (Saline Flush) 10 ml FLUSH ASDIRECTED PRN PRN Reason: Keep Vein Open
== END 2017-07-30 08:35 | disposition home or self-care (01) | DRG 560 ==
LOC: JD.OBCHECK 17:26 → JD.OB 17:26 → JD.OBCHECK 18:12 → JD.OB 18:12 → OBSVTOIN 07-28 12:36 → JD.OB 07-28 12:37
PROVIDERS: ADMIT Obstetrics & Gynecology; ATTEND Obstetrics & Gynecology
PROC: 10E0XZZ Delivery of Products of Conception, External Approach (ICD-10-PCS; principal; 2017-07-28)
PROC: 0KQM0ZZ Repair Perineum Muscle, Open Approach (ICD-10-PCS; 2017-07-28)
DX: O70.1 Second degree perineal laceration during delivery (principal); Z3A.38 38 weeks gestation of pregnancy; Z37.0 Single live birth
CPT/HCPCS: 36415; 59025; 59300; 59409; 85025; 86592; 86850; 86900; 86901; A9270-GY; J2300; J2590; J7120

== ENCOUNTER 2019-07-15 02:37 | Inpatient (IN) | payer BC ==
[2019-07-15] MEDS ORDERED: Sodium Chloride 0.9% 10 ML Syringe FLUSH PRN (03:15)
[2019-07-15] MEDS ORDERED: Oxytocin/Lactated Ringers 10 UNIT/1,000 ML BAG IV SCH (03:15)
[2019-07-15] MEDS ORDERED: Nalbuphine 10 MG/ML Syringe IVPUSH PRN (03:15)
[2019-07-15] MEDS ORDERED: Lactated Ringers 1,000 ML IV SCH (03:15)
[2019-07-15] MEDS ORDERED: Lidocaine 1% 50 ML MDV ONE (04:06)
[2019-07-15] MEDS ORDERED: Lidocaine 1% 10 ML MDV INJECT ONE (04:08)
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
--- NOTE | 2019-07-15 04:38 | PCM.SN.2 ---
- Free Text/Narrative Note: Stage I - Patient presented about one hour after SROM clear fluid completely dilated. Stage II - of viable male, weight 2790g, 7/9 APGARS at 0402. After 40 minutes of pushing patient felt light headed and dizzy. heart tones in 60s so consented verbally for vacuum. Prepared to place with next contraction however patient pushed very productively with that contraction and head was delivered. Body and shoulders followed without difficulty. placed on maternal abdomen. Positive cry. Cord clamped and cut and baby taken to warmer at one minute of life. Stage III - of intact placenta. 3vc. Minimal bleeding. Small first degree laceration repaired with one suture of 3-0 vicryl.
[2019-07-15] MEDS ORDERED: Ibuprofen 600 MG Tab PO PRN (05:13)
[2019-07-15] MEDS ORDERED: Witch Hazel Medicated Pads 40/Jar TOP PRN (05:13)
[2019-07-15] MEDS ORDERED: Benzocaine/Menthol 20%-0.5% Spray 56 GM Canister TOP PRN (05:13)
--- NOTE | 2019-07-16 15:30 | PCM.DCSUM1 ---
Discharge Summary - Hospital Course Brief History: Admitted with SROM. Rapid Diagnosis: Stroke: No - Discharge Data Discharge Date: 07/16/19 Discharge Disposition: Home, Self-Care 01 Condition: Good - Referral to Home Health Primary Care Physician: Kait Mcdaniels MD - Patient Instructions Diet: Usual Diet as Tolerated Activity: No Strenuous Activities Driving: May Drive Today Showering/Bathing: May Shower Notify Provider of: Fever, Increased Pain, Swelling and Redness, Drainage, Nausea and/or Vomiting - Discharge Plan *PRESCRIPTION DRUG MONITORING PROGRAM REVIEWED*: No *COPY OF PRESCRIPTION DRUG MONITORING REPORT IN PATIENT SHERRON: No Home Medications: Home Meds Ferrous Gluconate [Iron] 236 mg PO 07/15/19 [History] Patient Handouts: Care of a Perineal Tear, Care After Vaginal Delivery - Discharge Summary/Plan Comment DC Time >30 min.: No - General Info Date of Service: 07/16/19 Functional Status: Reports: Pain Controlled - Review of Systems General: Reports: No Symptoms HEENT: Reports: No Symptoms Pulmonary: Reports: No Symptoms Cardiovascular: Reports: No Symptoms Gastrointestinal: Reports: No Symptoms Genitourinary: Reports: No Symptoms Musculoskeletal: Reports: No Symptoms Skin: Reports: No Symptoms Neurological: Reports: No Symptoms Psychiatric: Reports: No Symptoms - Patient Data Vitals - Most Recent: Last Vital Signs Temp 37.1 C 07/16/19 02:13 Pulse 66 07/16/19 02:13 Resp 14 07/16/19 02:13 BP 128/94 H 07/16/19 02:13 Pulse Ox 98 07/16/19 02:13 Weight - Most Recent: 60.645 kg Lab Results - Last 24 hrs: Laboratory Results - last 24 hr 07/15/19 07/16/19 Range/Units 03:26 06:34 WBC 9.25 (3.98-10.04) K/mm3 RBC 3.93 L (3.98-5.22) M/mm3 Hgb 12.5 (11.2-15.7) gm/dl Hct 37.1 (34.1-44.9) % MCV 94.4 (79.4-94.8) fl MCH 31.8 (25.6-32.2) pg MCHC 33.7 (32.2-35.5) g/dl RDW Std Deviation 43.1 (36.4-46.3) fL Plt Count 151 L (182-369) K/mm3 MPV 11.3 (9.4-12.3) fl RPR Non-reactive (NONREACTIVE) Med Orders - Current: Current Medications Discontinued Medications Benzocaine/Menthol (Dermoplast Pain Relief [place]) 0 gm TOP ASDIRECTED PRN PRN Reason: Perineal Comfort Measure Last Admin: 07/15/19 05:46 Dose: 1 canister Lactated Ringer's (Ringers, Lactated) 1,000 mls @ 100 mls/hr IV ASDIRECTED [place] Oxytocin/Lactated Ringer's (Pitocin In Lr 10 Units/1,000 Ml) 10 unit in 1,000 mls @ 500 mls/hr IV .CONTINUOUS [place] Last Admin: 07/15/19 04:03 Dose: 500 mls/hr Ibuprofen (Motrin) 600 mg PO Q6H PRN PRN Reason: Mild pain or fever Last Admin: 07/15/19 05:46 Dose: 600 mg Lidocaine HCl (Xylocaine 1%) 10 ml INJECT ONETIME ONE Stop: 07/15/19 04:09 Last Admin: 07/15/19 04:32 Dose: 10 ml Lidocaine HCl (Xylocaine 1%) Confirm Administered Dose 50 ml .ROUTE .STK-MED ONE Stop: 07/15/19 04:07 Last Admin: 07/15/19 04:09 Dose: Not Given Nalbuphine HCl (Nubain) 10 mg IVPUSH Q2H PRN PRN Reason: Pain Sodium Chloride (Saline Flush) 10 ml FLUSH ASDIRECTED PRN PRN Reason: Keep Vein Open Witch Anjelica (Tucks) 1 pad TOP ASDIRECTED PRN PRN Reason: Pain - Exam General: Reports: Alert, Oriented HEENT: Reports: Pupils Equal, Pupils Reactive, EOMI, Mucous Membr. Moist/[place] Neck: Reports: Supple Lungs: Reports: Clear to Auscultation, Normal Respiratory Effort Cardiovascular: Reports: Regular Rate GI/Abdominal Exam: Normal Bowel Sounds, Soft, Non-Tender, No Organomegaly, No Distention, No Abnormal Bruit, No Mass, Pelvis Stable Rectal (Female) Exam: Normal Exam, Normal Rectal Tone Back Exam: Reports: Normal Inspection, Full Range of Motion Extremities: Normal Inspection, Normal Range of Motion, Non-Tender, No Pedal Edema, Normal Capillary Refill Skin: Reports: Warm, Dry, Intact Wound/Incisions: Reports: Healing Well Neurological: Reports: No New Focal Deficit Psy/Mental Status: Reports: Alert, Normal Affect, Normal Mood
== END 2019-07-16 07:51 | disposition home or self-care (01) | DRG 560 ==
LOC: JD.OB 02:37 → OBSVTOIN 04:02 → JD.OB 04:02
PROVIDERS: ADMIT Obstetrics & Gynecology; ATTEND Obstetrics & Gynecology
PROC: 10E0XZZ Delivery of Products of Conception, External Approach (ICD-10-PCS; principal; 2019-07-15)
PROC: 0HQ9XZZ Repair Perineum Skin, External Approach (ICD-10-PCS; 2019-07-15)
DX: O70.0 First degree perineal laceration during delivery (principal); Z37.0 Single live birth; Z3A.37 37 weeks gestation of pregnancy
CPT/HCPCS: 36415; 59025; 59409; 80053; 85025; 85027; 86592; 86850; 86900; 86901; A9270-GY; J2001; J2590